=== PATIENT | female | born 1980 | race Caucasian/White ===

== ENCOUNTER 2016-06-15 15:03 | Emergency (ER) | payer MEDICAID ==
[~2016-06-15] VITALS: Ht 172.7 cm; Wt 116.0 kg
[~2016-06-15 15:03] MED LIST: CIPR-9 PO
[2016-06-15 15:06] VITALS: BP 158/110; PULSE 99; RESP 17; TEMP 98.1; O2SAT 97
[2016-06-15] MEDS ORDERED: PENI500T PO (15:36)
[2016-06-15] MEDS ORDERED: DICL50TA3 PO (15:36)
[2016-06-15] MEDS ORDERED: PERI0.126 SWISH-SPIT (15:36)
--- NOTE | 2016-06-15 15:45 | PD ---
HPI Chief Complaint: Oral / Dental Pain or Problem Time Seen by Provider: 15:38 Travel History International Travel<30 days: No Contact w/Intl Traveler<30days: No Traveled to known affect area: No History of Present Illness HPI Patient's 35-year-old female with chronic dental issues presenting with chief complaint of "I think I have another dental infection ". She has a tooth on the bottom right that has been effective multiple times has multiple parts broken off. No acute injury or breakage but has had acute worsening of the pain over 2 days. NSAIDs helped only minimally. Clove oil does seem to help. She reports some swelling and redness physician S and plans enlarged on the side of her neck on the right side. She denies induration or sublingual masses. She denies sore throat and difficulty swallowing or breathing. She has a left upper tooth problem where she has some fistula formation chronically acute worsening. She denies current . PFSH Past Medical History Cancer: Yes (CERVICAL) Diminished Hearing: No Respiratory: Yes (CHRONIC BRONCHITIS) Immunizations Current: Yes ?: Not LMP: 05/18/2016 Ectopic : Yes (RUPTURE WITH OPEN REPAIR) Past Surgical History Gynecologic Surgery: Yes (LEEP ) Other Surgery: Yes (CAROTID LACERATION REPAIR) Social History Alcohol Use: No Tobacco Use: No Substance Use: No Allergies-Medications (Allergen,Severity, Reaction): Coded Allergies: Iodine (Verified Allergy, Severe, 06/15/16) Latex (Verified Allergy, Severe, 06/15/16) Reported Meds & Prescriptions Reported Meds & Active Scripts Active Peridex Liq (Chlorhexidine Gluconate (Mouth) Liq) 0.12% Soln 15 Ml SWISH-SPIT BID Diclofenac Sodium DR (Diclofenac Sodium) 50 Mg Tabdr 50 Mg PO BID Penicillin V Potassium 500 Mg Tab 500 Mg PO Q6H 10 Days Review of Systems General / Constitutional: No: Fever, Chills HENT: Positive: Dental Difficulties, No: Headaches, Sore Throat, Neck Pain, Masses, Gingival Bleeding Cardiovascular: No: Chest Pain or Discomfort Respiratory: No: Shortness of Breath, Stridor Hematologic/Lymphatic: Positive: Lymph Node Enlargement Physical Exam Narrative GENERAL: Well-developed and well-nourished adult female in no acute distress. SKIN: Warm and dry. Good turgor without tenting. HEAD: Normocephalic and atraumatic. EYES: PERRL bilaterally, 5mm. EOMI bilaterally. No injection or icterus present. No proptosis. Lids without edema or erythema. ENT: Overall poor oral dentition. Tooth #29 has multiple caries on the lingual side and approximately two thirds of the tooth is absent. Tooth is tender to percussion but not loose. There is some erythema and tenderness of the gingiva at this tooth on the buccal side but not on the lingual side. No induration or fluctuance or drainage or bleeding. Around tooth #11 there is a small area superior to the tooth on the gingiva looks like a fistula opening. No drainage. No buccal or sublingual masses. Buccal mucosa pink and moist. Oropharynx free of erythema, tonsillar hypertrophy, masses, swelling, asymmetry and exudates. Uvula midline and airway patent. NECK: Supple, no meningeal sign. Trachea midline, no JVD. No cervical or facial lymphadenopathy however does have some tenderness to the right posterior cervical lymphadenopathy chain with palpation. No induration or masses in the cervical/submandibular or anterior neck. CARDIOVASCULAR: Regular rate and rhythm without murmurs, rubs, clicks or gallops. Radial pulses 2+ bilaterally. RESPIRATORY: Clear to auscultation bilaterally with symmetrical rise and fall, no distress or use of accessory muscles. NEUROLOGIC: CN II-XII grossly intact. Awake and alert. Motor grossly within normal limits. Normal speech. PSYCHIATRIC: Appropriate mood and affect; insight and judgment normal. Data Data Last Documented VS Vital Signs Date Time Temp Pulse Resp B/P Pulse Ox O2 Delivery O2 Flow Rate FiO2 06/15/16 15:06 98.1 99 17 158/110 97 MDM Medical Decision Making Medical Screen Exam Complete: Yes Emergency Medical Condition: Yes Differential Diagnosis Caries versus Periapical abscess versus cellulitis versus Tooth Fracture vs less likely Ludwigs Angina Narrative Course Patient is a 34-year-old female with history and physical suggestive of early periapical abscess. She'll be given prescription for diclofenac, Peridex, and pen VK. Recommend follow-up with dentist tomorrow.blood pressure is elevated she denies a history of hypertension has no cardiopulmonary symptoms. Recommend she follow up with PCP to have blood pressure evaluated. See discharge paperwork for further instructions. The plan was discussed with the patient who acknowledged their understanding and agreement. Reinforced the follow-up with primary care is critically important. Patient instructed on emergent conditions that should prompt return to ED. Diagnosis Primary Impression: Periapical abscess Additional Impression: Elevated blood pressure reading Patient Instructions: Dental Abscess (ED), General Instructions Additional Instructions: Take medication as directed Use salt water gargles, Orajel, or other OTC products for topical pain relief Apply ice packs hourly as needed to help with swelling and pain Recommend following up with PCP this week to be evaluated for elevated blood pressure/hypertension Schedule with dentist MASSIEL for definitive treatment Return to the ED for any acute worsening of symptoms Med/Other Pt SpecificInfo: Prescription(s) given Scripts Chlorhexidine Gluconate (Mouth) Liq (Peridex Liq)0.12% Soln15 Ml SWISH-SPIT BID #473 ML Prov:Raciel Pelaez MD 06/15/[address] 50 Mg Tabdr50 Mg PO BID #14 TAB Prov:Raciel Pelaez MD 06/15/16 Penicillin V Potassium 500 Mg Tmp440 Mg PO Q6H 10 Days Prov:Raciel Pelaez MD 06/15/16 Disposition: 01 DISCHARGE HOME Condition: Stable Claudio Wade III Jun 15, 2016 15:45
== END 2016-06-15 15:57 | disposition home or self-care (01) ==
LOC: PHED 15:03 → PHEFT 15:57
DX: K04.7 Periapical abscess without sinus (principal); R03.0 Elevated blood-pressure reading, without diagnosis of hypertension
CPT/HCPCS: 99282

== ENCOUNTER 2016-08-28 16:27 | Emergency (ER) | payer MEDICAID ==
[~2016-08-28] VITALS: Ht 172.7 cm; Wt 114.0 kg
[~2016-08-28 16:27] MED LIST changes: -CIPR-9 PO; +DICL50TA3 PO; +PENI500T PO; +PERI0.126 SWISH-SPIT
[2016-08-28 16:42] VITALS: BP 144/92; PULSE 88; RESP 16; TEMP 98.9; O2SAT 100
[2016-08-28] MEDS ORDERED: SODIUM CHLOR 0.9% 1000 ML INJ 1,000 ML IV ONE (16:55)
[2016-08-28] MEDS ORDERED: SODIUM CHLORIDE 0.9% FLUSH 10 ML FLUSH IVF PRN (17:00)
--- NOTE | 2016-08-28 17:25 | PD ---
HPI Chief Complaint: Related Problem Time Seen by Provider: 16:58 Travel History International Travel<30 days: No Contact w/Intl Traveler<30days: No Traveled to known affect area: No History of Present Illness HPI Patient is a 35-year-old female who is [id number], currently 6 weeks , presents to emergency room for evaluation of lower abdominal cramping and scant vaginal bleeding since last night. Patient reports that symptoms began last night, reports that she has had 3 miscarriages in the past and reports concern as she may be miscarrying. Reports that in the past, she has had 3 miscarriages and carried to around 8-9 weeks, reports that she had similar symptoms when compared to her past miscarriages. Denies any vaginal discharge. Reports that since she is high risk, she did see her PCP last week and had an HCG quant of 4,222 as well as a pelvic ultrasound which showed a IUP in her uterus. Patient requesting pelvic ultrasound as well as hCG Quant. PFSH Past Medical History Cancer: Yes (CERVICAL) Diminished Hearing: No Respiratory: Yes (CHRONIC BRONCHITIS) Immunizations Current: Yes Tetanus Vaccination: < 5 Years Influenza Vaccination: No ?: LMP: 07/13/16 Ectopic : Yes (RUPTURE WITH OPEN REPAIR) Past Surgical History Gynecologic Surgery: Yes (LEEP ) Other Surgery: Yes (CAROTID LACERATION REPAIR) Social History Alcohol Use: No Tobacco Use: No Substance Use: No Allergies-Medications (Allergen,Severity, Reaction): Coded Allergies: Iodine (Verified Allergy, Severe, Anaphylaxis, 08/28/16) Latex (Verified Allergy, Severe, Rash, 08/28/16) Shellfish (Verified Allergy, Severe, Anaphylaxis, 08/28/16) Reported Meds & Prescriptions Reported Meds & Active Scripts Active Review of Systems General / Constitutional: No: Fever Eyes: No: Visual changes HENT: No: Headaches Cardiovascular: No: Chest Pain or Discomfort Respiratory: No: Shortness of Breath Gastrointestinal: Positive: Abdominal Pain, No: Nausea, Vomiting Genitourinary: Positive: Vaginal Bleeding, No: Dysuria Musculoskeletal: No: Pain Skin: No Rash Neurologic: No: Weakness Psychiatric: No: Depression Endocrine: No: Polydipsia Hematologic/Lymphatic: No: Easy Bruising Physical Exam Narrative GENERAL: No acute distress, nontoxic SKIN: Warm and dry. HEAD: Atraumatic. Normocephalic. EYES: Pupils equal and round. No injection or drainage. ENT: No nasal bleeding or discharge. Mucous membranes pink and moist. NECK: Trachea midline. No JVD. CARDIOVASCULAR: Regular rate and rhythm. No murmur appreciated. RESPIRATORY: No accessory muscle use. Clear to auscultation. Breath sounds equal bilaterally. GASTROINTESTINAL: Abdomen soft, non-tender, nondistended. Mild lower abdominal tenderness MUSCULOSKELETAL: No obvious deformities. No clubbing. No cyanosis. No edema. NEUROLOGICAL: Awake and alert. Normal speech. PSYCHIATRIC: Appropriate mood and affect; insight and judgment normal. Data Data Last Documented VS Vital Signs Date Time Temp Pulse Resp B/P Pulse Ox O2 Delivery O2 Flow Rate FiO2 08/28/16 19:00 88 16 144/73 99 Room Air 08/28/16 16:42 98.9 Orders Beta Hcg (Quant/Titer) (08/28/16 16:55) Complete Blood Count With Diff (08/28/16 16:55) Comprehensive Metabolic Panel (08/28/16 16:55) Complete Rh (08/28/16 16:55) Type And Screen (08/28/16 16:55) Urinalysis - C+S If Indicated (08/28/16 16:55) Iv Access Insert/Monitor (08/28/16 16:55) Sodium Chloride 0.9% Flush (Ns Flush) (08/28/16 17:00) Sodium Chlor 0.9% 1000 Ml Inj (Ns 1000 M (08/28/16 16:55) Rhogam Only (08/28/16 16:55) Ed Urine Pregnancytest Poc (08/28/16 16:55) Us Pelvis (Ques Pr/Ect)W Trans (08/28/16 ) Labs Laboratory Tests Test 08/28/16 17:20 White Blood Count 8.2 TH/MM3 Red Blood Count 4.67 MIL/MM3 Hemoglobin 14.7 GM/DL Hematocrit 43.9 % Mean Corpuscular Volume 93.9 FL Mean Corpuscular Hemoglobin 31.5 PG Mean Corpuscular Hemoglobin 33.6 % Concent Red Cell Distribution Width 12.1 % Platelet Count 237 TH/MM3 Mean Platelet Volume 9.1 FL Neutrophils (%) (Auto) 56.8 % Lymphocytes (%) (Auto) 34.8 % Monocytes (%) (Auto) 6.9 % Eosinophils (%) (Auto) 0.5 % Basophils (%) (Auto) 1.0 % Neutrophils # (Auto) 4.7 TH/MM3 Lymphocytes # (Auto) 2.8 TH/MM3 Monocytes # (Auto) 0.6 TH/MM3 Eosinophils # (Auto) 0.0 TH/MM3 Basophils # (Auto) 0.1 TH/MM3 CBC Comment DIFF FINAL Differential Comment Urine Color YELLOW Urine Turbidity CLEAR Urine pH 6.5 Urine Specific [place] 1.019 Urine Protein NEG mg/dL Urine Glucose (UA) NEG mg/dL Urine Ketones NEG mg/dL Urine Occult Blood TRACE Urine Nitrite NEG Urine Bilirubin NEG Urine Leukocyte Esterase NEG Urine RBC 0-3 /hpf Urine WBC 0-2 /hpf Urine Squamous Epithelial > 8 /hpf Cells Urine Bacteria RARE /hpf Microscopic Urinalysis Comment CULT NOT INDICATED Sodium Level 140 MEQ/L Potassium Level 3.5 MEQ/L Chloride Level 106 MEQ/L Carbon Dioxide Level 26.6 MEQ/L Anion Gap 7 MEQ/L Blood Urea Nitrogen 8 MG/DL Creatinine 0.59 MG/DL Estimat Glomerular Filtration 116 ML/MIN Rate Random Glucose 97 MG/DL Calcium Level 9.0 MG/DL Total Bilirubin 0.3 MG/DL Aspartate Amino Transf 24 U/L (AST/SGOT) Alanine Aminotransferase 35 U/L (ALT/SGPT) Alkaline Phosphatase 51 U/L Total Protein 7.4 GM/DL Albumin 3.6 GM/DL Human Chorionic Gonadotropin, 08616 MIU/ML Quant Blood Type A NEGATIVE Rho(D) Type NEGATIVE Antibody Screen Blood Bank Comment MDM Medical Decision Making Medical Screen Exam Complete: Yes Emergency Medical Condition: Yes Interpretation(s) Vital Signs Date Time Temp Pulse Resp B/P Pulse Ox O2 Delivery O2 Flow Rate FiO2 08/28/16 16:42 98.9 88 16 144/92 100 Differential Diagnosis Spontaneous miscarriage, irregular vaginal bleeding with early , threatened miscarriage, anemia Narrative Course 35-year-old female who presents to emergency room with complaints of early vaginal bleeding and cramping, currently 6 weeks and 4 days . Patient reports history of miscarriages in the past, reports that she has had 3 miscarriages and the longest that she carried with these pregnancies were around 9 weeks. Patient does have an hCG Quant from last week, which was 4333 Plan to obtain lab work including hCG Quant as well as a pelvic ultrasound.] CBC & BMP Diagram 08/28/16 17:20 Vital Signs Date Time Temp Pulse Resp B/P Pulse Ox O2 Delivery O2 Flow Rate FiO2 08/28/16 19:00 88 16 144/73 99 Room Air 08/28/16 16:42 98.9 88 16 144/92 100 HCG quant has increased from last week to 26,756. A copy of her lab work was given to her as she will need to have her HCG quant trended. Last Impressions Pelvis Ultrasound 08/28/16 0000 Signed Impressions: Service Date/Time: August 19:22 - CONCLUSION: 1. Viable 5 week 5 day intrauterine with heart rate 117 beats per minute. 2. Small hemorrhage in the endometrial canal. 3. 2 cm left ovarian corpus luteum cyst. Javier Hammonds MD Did review all labs and all studies as well as ultrasound report with patient. A copy of patient's ultrasound report was given to her. Discussed need for pelvic rest until she is seen and cleared by her BANKING OFFICER. Signs and symptoms of when to return to the emergency room was reviewed patient in detail. Diagnosis Primary Impression: Threatened Additional Impression: probable small hemorrhage in endometrial canal Patient Instructions: General Instructions Additional Instructions: Please provide patient with a copy of her lab work and ultrasound report at discharge Please follow-up with your BANKING OFFICER as soon as possible Pelvic rest until you're seen and cleared by BANKING OFFICER Your hCG Quant today was 26,756 Please bring your lab work as well as your pelvic ultrasound report to doctor's office for follow-up Return to the emergency room if symptoms worsen or progress Return to emergency room as needed Scripts No Active Prescriptions or Reported Meds Janet Schwarz DO Aug 28, 2016 17:25
[2016-08-28 17:47] LABS: AUTOMATED NEUTROPHIL # 4.7 TH/MM3 (1.8-7.7); BASOPHIL # 0.1 TH/MM3 (0-0.2); EOSINOPHIL % 0.5 % (0.0-4.0); HEMATOCRIT 43.9 % (35.0-46.0); HEMO FLAGS DIFF FINAL; LYMPH % 34.8 % (9.0-44.0); LYMPHOCYTE # 2.8 TH/MM3 (1.0-4.8); MEAN CELL VOLUME 93.9 FL (80.0-100.0); MEAN CORPUSCULAR HEMOGLOBIN 31.5 PG (27.0-34.0); MEAN CORPUSCULAR HGB CONC 33.6 % (32.0-36.0); MONO % 6.9 % (0.0-8.0); NEUT % 56.8 % (16.0-70.0); PLATELET COUNT 237 TH/MM3 (150-450); RED BLOOD COUNT 4.67 MIL/MM3 (4.00-5.30); RED CELL DISTRIBUTION WIDTH 12.1 % (11.6-17.2); WHITE BLOOD COUNT 8.2 TH/MM3 (4.0-11.0)
[2016-08-28 17:51] LABS: BLOOD, URINE TRACE (NEG); GLUCOSE,URINE NEG (NEG); KETONE, URINE NEG (NEG); NITRITE,URINE NEG (NEG); PH, URINE 6.5 (5.0-8.5)
[2016-08-28 17:55] LABS: CHLORIDE 106 MEQ/L (98-107); POTASSIUM 3.5 MEQ/L (3.5-5.1); SODIUM (NA) 140 MEQ/L (136-145)
[2016-08-28 17:58] LABS: RBC, URINE 0-3 /hpf (0-3); URINE COLOR YELLOW (YELLW/STRAW); WBC, URINE 0-2 /hpf (0-5)
[2016-08-28 17:59] LABS: ANION GAP 7 MEQ/L (5-15); BACTERIA, URINE RARE /hpf; BICARBONATE 26.6 MEQ/L (21.0-32.0); BLOOD UREA NITROGEN 8 MG/DL (7-18); COMMENT (UR) CULT NOT INDICATED; CULTURE IF INDICATED CULT NOT INDICATED; SQUAMOUS EPITHELIAL CELL URINE > 8 /hpf (0-5)
[2016-08-28 18:02] LABS: ALT (GPT) 35 U/L (10-53); AST (GOT) 24 U/L (15-37); GLOMERULAR FILTRATION RATE 116 ML/MIN (>89)
[2016-08-28 18:03] LABS: TOTAL BILIRUBIN ADULT 0.3 MG/DL (0.2-1.0)
[2016-08-28 18:05] LABS: ALKALINE PHOSPHATASE 51 U/L (45-117)
[2016-08-28 18:20] LABS: BETA HCG QUANT 26756 MIU/ML (0-5)
[2016-08-28 19:00] VITALS: BP 144/73; PULSE 88; RESP 16; O2SAT 99
--- NOTE | 2016-08-28 20:17 | RADHPO ---
EXAM DATE/TIME: 08/28/2016 19:22 [facility] COMPARISON: No previous studies available for comparison. INDICATIONS : Pelvic cramping and spotting. LAB(S): Beta-hC,756 MEDICAL HISTORY : . Carcinoma, cervical. Chronic bronchitis. SURGICAL HISTORY : LEEP. Ectopic rupture with open repair. Carotid laceration repair. ENCOUNTER: Initial ACUITY: 2 days PAIN SCORE: 4/10 LOCATION: Bilateral pelvis MEASUREMENTS: UTERUS: 9.5 x 6.5 x 5.5 cm ENDOMETRIAL STRIPE: 17 mm RIGHT OVARY: 2.3 x 2.9 x 1.4 cm LEFT OVARY: 3.4 x 2.9 x 2.7 cm FREE FLUID: No CROWN RUMP LENGTH: 0.2 cm = 5 WKS 5 DAYS FHR: 117 BPM FINDINGS: Ultrasound confirms a viable intrauterine of 5 weeks 5 days gestational age by gestational sac dimensions and crown-rump length. A heart rate is 117 beats per minute. 6 mm nabothian cyst . Probable small hemorrhage in the endometrial canal measuring about 2.1 x 0.4 x 0.8 cm. Right ovary unremarkable. 2 cm left ovarian cyst characteristic of a corpus luteum cyst. CONCLUSION: 1. Viable 5 week 5 day intrauterine with heart rate 117 beats per minute. 2. Small hemorrhage in the endometrial canal. 3. 2 cm left ovarian corpus luteum cyst. Javier Hammonds MD on August 28, 2016 at 20:11 Board Certified Radiologist. This report was verified electronically.
[2016-08-28 22:00] VITALS: BP 136/75
== END 2016-08-28 22:00 | disposition home or self-care (01) ==
LOC: PHED 16:27
DX: O20.0 Threatened abortion (principal); Z85.41 Personal history of malignant neoplasm of cervix uteri; Z3A.01 Less than 8 weeks gestation of pregnancy
CPT/HCPCS: 76700; 76817; 80053; 81001; 84702; 84703; 85025; 86850; 86900; 86901; 90384; J7030; 96360; 96361; 96372; J2790

== ENCOUNTER 2016-11-14 11:28 | Emergency (ER) | payer MEDICAID ==
[~2016-11-14] VITALS: Ht 170.2 cm; Wt 115.0 kg
[2016-11-14 11:30] VITALS: BP 175/84; PULSE 100; RESP 20; TEMP 97.4; O2SAT 98
--- NOTE | 2016-11-14 11:36 | PD ---
Physical Exam Date Seen by Provider: Nov 14, 2016 Time Seen by Provider: 11:33 Data Data Last Documented VS Vital Signs Date Time Temp Pulse Resp B/P Pulse Ox O2 Delivery O2 Flow Rate FiO2 11/14/16 11:30 97.4 100 20 175/84 98 Room Air [facility] Supervised Visit with STEPHEN: No Narrative Course 36 YO F with complaint of cough, body aches x 1 week. -- fever. 7 weeks 5 days gestation by US. Vitals reviewed. Awaiting bed placement. Scripts No Active Prescriptions or Reported Meds Tanja Lemos Nov 14, 2016 11:36
--- NOTE | 2016-11-14 13:34 | PD ---
HPI Chief Complaint: Cold / Flu Symptoms Time Seen by Provider: 13:04 Travel History International Travel<30 days: No Contact w/Intl Traveler<30days: No Traveled to known affect area: No History of Present Illness HPI This patient complains of runny nose congestion cough and general achiness. She is 17 weeks . No pelvic pain or vaginal bleeding. She does not have any documented fever. Symptoms severity is mild to moderate PFSH Past Medical History Cancer: Yes (CERVICAL) Diminished Hearing: No Respiratory: Yes (CHRONIC BRONCHITIS) Immunizations Current: Yes Ectopic : Yes (RUPTURE WITH OPEN REPAIR) Past Surgical History Gynecologic Surgery: Yes (LEEP ) Other Surgery: Yes (CAROTID LACERATION REPAIR) Social History Alcohol Use: No Tobacco Use: No Substance Use: No Allergies-Medications (Allergen,Severity, Reaction): Coded Allergies: Iodine (Verified Allergy, Severe, Anaphylaxis, 08/28/16) Latex (Verified Allergy, Severe, Rash, 08/28/16) Shellfish (Verified Allergy, Severe, Anaphylaxis, 08/28/16) Reported Meds & Prescriptions Reported Meds & Active Scripts Active No Active Prescriptions or Reported Medications Review of Systems HENT: No: Headaches Cardiovascular: No: Chest Pain or Discomfort Respiratory: Positive: Cough Gastrointestinal: No: Vomiting Physical Exam Narrative RESPIRATORY: Respiratory effort unlabored, no retractions or use of accessory muscles. Breath sounds are clear and symmetric. GASTROINTESTINAL: Abdomen soft, non-tender, nondistended. Positive bowel sounds. No hepato-splenomegaly, or palpable masses. No guarding. SKIN: Focused skin assessment reveals no rash or ulcers. Skin is warm and dry. Palpation shows no induration or nodules. Data Data Last Documented VS Vital Signs Date Time Temp Pulse Resp B/P Pulse Ox O2 Delivery O2 Flow Rate FiO2 11/14/16 13:20 18 99 Room Air 11/14/16 11:30 97.4 100 175/84 MDM Medical Decision Making Medical Screen Exam Complete: Yes Emergency Medical Condition: Yes Medical Record Reviewed: Yes Differential Diagnosis Flu syndrome, URI, bronchitis Narrative Course I have reviewed the patient's electronic medical record. Patient's presentation most consistent with acute viral URI/flu syndrome. Supportive care discussed. No indication for antibiotics. Diagnosis Primary Impression: Flu syndrome Additional Impression: Qualified Code: Z3A.17 - 17 weeks gestation of Additional Instructions: The patient was advised to follow up with their physician and return if they worsen. Med/Other Pt SpecificInfo: Other Scripts No Active Prescriptions or Reported Meds Disposition: 01 DISCHARGE HOME Condition: Stable Garrick Matute MD Nov 14, 2016 13:34
== END 2016-11-14 14:36 | disposition home or self-care (01) ==
LOC: NEPD 11:28
DX: O98.512 Other viral diseases complicating pregnancy, second trimester (principal); J11.1 Influenza due to unidentified influenza virus with other respiratory manifestations; O09.512 Supervision of elderly primigravida, second trimester; Z3A.17 17 weeks gestation of pregnancy
CPT/HCPCS: 99282

== ENCOUNTER 2017-01-30 23:13 | Emergency (ER) | payer MEDICAID ==
[~2017-01-30] VITALS: Ht 170.2 cm; Wt 115.0 kg
[2017-01-30 23:17] VITALS: BP 181/93; PULSE 87; RESP 15; TEMP 98.4; O2SAT 97
[2017-01-30] MEDS ORDERED: prenatal vitamin PO (23:29)
--- NOTE | 2017-01-31 00:40 | PD ---
HPI Chief Complaint: Laceration/Skin Injury Time Seen by Provider: 00:35 Travel History International Travel<30 days: No Contact w/Intl Traveler<30days: No Traveled to known affect area: No History of Present Illness HPI 36-year-old white female presents to emergency department with a laceration to her right middle finger. She states that she had cut her finger on a wire on the couch when she was reaching down inside of it to get a piece of her phone belt polisher. She has not had a tetanus shot over 5 years. She denies any numbness , tingling or weakness. She is . [facility] Past Medical History Cancer: Yes (CERVICAL) Diminished Hearing: No Respiratory: Yes (CHRONIC BRONCHITIS) Immunizations Current: Yes Tetanus Vaccination: > 5 Years Influenza Vaccination: No ?: LMP: 07/13/2016 : 8 Para: 3 Miscarriage: 4 Ectopic : Yes (RUPTURE WITH OPEN REPAIR) Past Surgical History Gynecologic Surgery: Yes (LEEP ) Other Surgery: Yes (CAROTID LACERATION REPAIR) Social History Alcohol Use: No Tobacco Use: No Substance Use: No Allergies-Medications (Allergen,Severity, Reaction): Coded Allergies: iodine (Unverified Allergy, Severe, Anaphylaxis, 01/20/17) latex (Unverified Allergy, Severe, Rash, 01/20/17) potassium iodide (Unverified Allergy, Severe, Anaphylaxis, 01/20/17) povidone-iodine (Unverified Allergy, Severe, Anaphylaxis, 01/20/17) shellfish derived (Unverified Allergy, Severe, Anaphylaxis, 01/20/17) sodium iodide (Unverified Allergy, Severe, Anaphylaxis, 01/20/17) sodium iodide (Unverified Allergy, Severe, Anaphylaxis, 01/20/17) Reported Meds & Prescriptions Reported Meds & Active Scripts Active Reported [ vitamin] 1 Tab PO DAILY Review of Systems Except as stated in HPI: all other systems reviewed are Neg Physical Exam Narrative GENERAL: This is a well-nourished, well-developed patient, in no apparent distress. SKIN: No rashes, ecchymoses or lesions. Warm and dry. Patient has a 2 cm superficial laceration to the volar pad of the right distal middle finger. There is no deep injury. She is able to extend and flex her finger freely. Good sensation. No foreign body. HEAD: Atraumatic. Normocephalic. EYES: PERRL, EOMI, no discharge or injection. No scleral icterus. EARS: Clear NOSE: Nasal turbinates appear normal. THROAT: Mucosa pink and moist. Airway patent. NECK: Trachea midline. supple, moves head freely. LUNGS: Clear to auscultation. CV: Regular in rhythm. ABDOMEN: Soft nontender. Gravid uterus. EXT: No clubbing cyanosis or edema. Data Data Last Documented VS Vital Signs Date Time Temp Pulse Resp B/P (MAP) Pulse Ox O2 Delivery O2 Flow Rate FiO2 01/30/17 23:17 98.4 87 15 181/93 (122) 97 Room Air Orders Orders Tetanus/Diphtheria Tox Adult (Tetanus/Di (01/31/17 00:45) MDM Medical Decision Making Medical Screen Exam Complete: Yes Emergency Medical Condition: Yes Medical Record Reviewed: Yes Differential Diagnosis MDM: High Differential diagnoses: Fracture, sprain, strain, dislocation, contusion, neurovascular injury Narrative Course Patient's tetanus status updated. Her wound is evaluated and the patient has declined sutures at this time. I believe that this wound will heal fine without sutures as well. The wound is cleansed by the nursing staff and a large bulky dressings applied. This is right middle finger laceration-nonsutured Diagnosis Primary Impression: right middle finger laceration-nonsutured Patient Instructions: General Instructions Additional Instructions: Rest. Elevation. Keep clean and dry. Daily wound care with soap, water, Neosporin. Tylenol for pain. Follow-up with your doctor in 1 week. Return to the ER for emergencies. Med/Other Pt SpecificInfo: Wound Care Disposition: DISCHARGE HOME Condition: Stable Javier Bain Jan 31, 2017 00:40
[2017-01-31] MEDS ORDERED: TETANUS/DIPHTHERIA TOXOID ADULT 0.5 ML VIAL IM ONE (00:45)
== END 2017-01-31 00:52 | disposition home or self-care (01) ==
LOC: NEPD 23:13
DX: S61.212A Laceration without foreign body of right middle finger without damage to nail, initial encounter (principal); W45.8XXA Other foreign body or object entering through skin, initial encounter; Z34.90 Encounter for supervision of normal pregnancy, unspecified, unspecified trimester; Z23 Encounter for immunization
CPT/HCPCS: 90471; 90714

== ENCOUNTER 2017-07-03 09:34 | Emergency (ER) | payer MEDICAID ==
[~2017-07-03] VITALS: Ht 172.7 cm; Wt 113.6 kg
[~2017-07-03 09:34] MED LIST changes: -DICL50TA3 PO; -PENI500T PO; -PERI0.126 SWISH-SPIT; +prenatal vitamin PO
[2017-07-03 09:36] VITALS: BP 172/89; PULSE 67; RESP 14; TEMP 97.5; O2SAT 99
[2017-07-03 10:59] LABS: BILIRUBIN, URINE NEG (NEG); BLOOD, URINE NEG (NEG); GLUCOSE,URINE NEG (NEG); KETONE, URINE NEG (NEG); MUCUS URINE FEW /lpf (OCC); NITRITE,URINE NEG (NEG); PH, URINE 6.5 (5.0-8.5); SQUAMOUS EPITHELIAL CELL URINE 2 /hpf (0-5); URINE COLOR YELLOW (YELLW/STRAW); URINE LEUKOCYTE ESTERASE NEG (NEG)
[2017-07-03 11:09] LABS: AUTOMATED NEUTROPHIL # 3.6 TH/MM3 (1.8-7.7); BASOPHIL # 0.1 TH/MM3 (0-0.2); BASOPHIL % 0.8 % (0.0-2.0); EOSINOPHIL # 0.1 TH/MM3 (0-0.4); EOSINOPHIL % 1.1 % (0.0-4.0); HEMATOCRIT 39.6 % (35.0-46.0); LYMPH % 39.5 % (9.0-44.0); LYMPHOCYTE # 2.8 TH/MM3 (1.0-4.8); MEAN CELL VOLUME 92.2 FL (80.0-100.0); MEAN CORPUSCULAR HEMOGLOBIN 32.7 PG (27.0-34.0); MEAN CORPUSCULAR HGB CONC 35.4 % (32.0-36.0); MONO % 7.9 % (0.0-8.0); MONOCYTE # 0.6 TH/MM3 (0-0.9); NEUT % 50.7 % (16.0-70.0); PLATELET COUNT 216 TH/MM3 (150-450); RED BLOOD COUNT 4.29 MIL/MM3 (4.00-5.30); RED CELL DISTRIBUTION WIDTH 13.3 % (11.6-17.2); WHITE BLOOD COUNT 7.1 TH/MM3 (4.0-11.0)
[2017-07-03] MEDS ORDERED: IBUPROFEN 800 MG TAB PO ONE (11:45)
[2017-07-03] MEDS ORDERED: IBUP1TAB7 PO (11:59)
--- NOTE | 2017-07-03 12:28 | PD ---
HPI Chief Complaint: Cardiac Complaint Time Seen by Provider: 11:26 Travel History International Travel<30 days: No Contact w/Intl Traveler<30days: No Traveled to known affect area: No History of Present Illness HPI 36-year-old female presents to the emergency department with complaint of bilateral lower back pain and intermittent pain to her front "kidneys," heart palpitations, nausea without vomiting, and feeling fatigued for the past 2 days. She has history of heart palpitations for the past 9-12 months and there is no difference in these palpitations, but she says it been occurring a little bit more often than normal for the past 2 days. She denies lightheadedness, dizziness, syncope, near syncope. Denies chest pain, shortness of breath. Says she's been told that she has urinary issues and is supposed to follow up outpatient, but doesn't know what's wrong with her kidneys. Reports bilateral lower extremity edema that has improved since she gave 3 months ago. Says her has flulike symptoms. The patient denies nasal congestion, cough, sore throat, ear pain. Reports body aches. Denies abdominal pain, fever , diarrhea. Has taken ibuprofen for symptom management. Symptoms are mild to moderate in severity. No known aggravating or relieving factors. Does not know the name of her PCP. Does not see a behavioral health clinician. Allergies to latex, shellfish, iodine. Denies significant past medical history. Has no other medical complaints. No other modifying factors or associated signs and symptoms. PFSH Past Medical History Cancer: Yes (CERVICAL) Diminished Hearing: No Respiratory: Yes (CHRONIC BRONCHITIS) Immunizations Current: Yes Tetanus Vaccination: < 5 Years Influenza Vaccination: No ?: Not : 8 Para: 3 Miscarriage: 4 Ectopic : Yes (RUPTURE WITH OPEN REPAIR) Past Surgical History Gynecologic Surgery: Yes (LEEP ) Other Surgery: Yes (CAROTID LACERATION REPAIR) Social History Alcohol Use: No Tobacco Use: No Substance Use: No Allergies-Medications (Allergen,Severity, Reaction): Coded Allergies: iodine (Unverified Allergy, Severe, Anaphylaxis, 07/03/17) latex (Unverified Allergy, Severe, Rash, 07/03/17) potassium iodide (Unverified Allergy, Severe, Anaphylaxis, 07/03/17) povidone-iodine (Unverified Allergy, Severe, Anaphylaxis, 07/03/17) shellfish derived (Unverified Allergy, Severe, Anaphylaxis, 07/03/17) sodium iodide (Unverified Allergy, Severe, Anaphylaxis, 07/03/17) sodium iodide (Unverified Allergy, Severe, Anaphylaxis, 07/03/17) Reported Meds & Prescriptions Reported Meds & Active Scripts Active Reported Ibuprofen 800 Mg Tab 800 Mg PO Q8H PRN [ vitamin] 1 Tab PO DAILY Review of Systems Except as stated in HPI: all other systems reviewed are Neg Physical Exam Narrative GENERAL: Well-nourished, well-developed female patient, in no acute distress; afebrile, nontoxic-appearing SKIN: Warm and dry. No rash. HEAD: Atraumatic. Normocephalic. EYES: Pupils equal and round. No scleral icterus. No injection or drainage. ENT: Mucosa pink and moist. No erythema or exudates. No uvular edema. No uvular , palatal, or tonsillar deviation. Airway patent. EARS: Bilateral pinnae and external canals appear within normal limits. Bilateral tympanic membranes without erythema, dullness or perforation. NECK: Trachea midline. No lymphadenopathy. CARDIOVASCULAR: Regular rate and rhythm. No murmur appreciated. RESPIRATORY: No accessory muscle use. Clear to auscultation. Breath sounds equal bilaterally. No retractions or tachypnea. GASTROINTESTINAL: Abdomen soft, non-tender, nondistended. Hepatic and splenic margins not palpable. Bowel sounds are active 4 quadrants. MUSCULOSKELETAL: No obvious deformities. No clubbing. No cyanosis. No edema. BACK: No CVA tenderness. NEUROLOGICAL: Awake and alert. Oriented 3. No obvious cranial nerve deficits. Motor grossly within normal limits. Normal speech. Moves all extremities. 5/5 strength to all extremities. PSYCHIATRIC: Appropriate mood and affect; insight and judgment normal. Data Data Last Documented VS Vital Signs Date Time Temp Pulse Resp B/P (MAP) Pulse Ox O2 Delivery O2 Flow Rate FiO2 07/03/17 15:43 07/03/17 11:30 Room Air 07/03/17 09:36 97.5 67 14 99 Orders Orders Electrocardiogram (07/03/17 10:13) Complete Blood Count With Diff (07/03/17 10:13) Basic Metabolic Panel (Bmp) (07/03/17 10:13) Ckmb (Isoenzyme) Profile (07/03/17 10:13) Troponin I (07/03/17 10:13) Urinalysis - C+S If Indicated (07/03/17 10:13) Chest, Single Ap (07/03/17 11:42) Ibuprofen (Motrin) (07/03/17 11:45) Influenzae A/B Antigen (07/03/17 11:42) Thyroid Stimulating Hormone (07/03/17 11:58) Ed Discharge Order (07/03/17 15:37) Labs Laboratory Tests Test 07/03/17 10:20 07/03/17 10:43 07/03/17 14:10 Urine Color YELLOW Urine Turbidity CLOUDY Urine pH 6.5 Urine Specific [place] 1.023 Urine Protein TRACE mg/dL Urine Glucose (UA) NEG mg/dL Urine Ketones NEG mg/dL Urine Occult Blood NEG Urine Nitrite NEG Urine Bilirubin NEG Urine Urobilinogen LESS THAN 2.0 MG/DL Urine Leukocyte Esterase NEG Urine RBC 1 /hpf Urine WBC LESS THAN 1 /hpf Urine Squamous Epithelial Cells 2 /hpf Urine Mucus FEW /lpf Microscopic Urinalysis Comment CULT NOT INDICATED White Blood Count 7.1 TH/MM3 Red Blood Count 4.29 MIL/MM3 Hemoglobin 14.0 GM/DL Hematocrit 39.6 % Mean Corpuscular Volume 92.2 FL Mean Corpuscular Hemoglobin 32.7 PG Mean Corpuscular Hemoglobin Concent 35.4 % Red Cell Distribution Width 13.3 % Platelet Count 216 TH/MM3 Mean Platelet Volume 8.0 FL Neutrophils (%) (Auto) 50.7 % Lymphocytes (%) (Auto) 39.5 % Monocytes (%) (Auto) 7.9 % Eosinophils (%) (Auto) 1.1 % Basophils (%) (Auto) 0.8 % Neutrophils # (Auto) 3.6 TH/MM3 Lymphocytes # (Auto) 2.8 TH/MM3 Monocytes # (Auto) 0.6 TH/MM3 Eosinophils # (Auto) 0.1 TH/MM3 Basophils # (Auto) 0.1 TH/MM3 CBC Comment DIFF FINAL Differential Comment Blood Urea Nitrogen 12 MG/DL Creatinine 0.58 MG/DL Random Glucose 94 MG/DL Calcium Level 8.8 MG/DL Sodium Level 139 MEQ/L Potassium Level 3.6 MEQ/L Chloride Level 105 MEQ/L Carbon Dioxide Level 25.4 MEQ/L Anion Gap 9 MEQ/L Estimat Glomerular Filtration Rate 118 ML/MIN Total Creatine Kinase 76 U/L Troponin I LESS THAN 0.02 NG/ML Thyroid Stimulating Hormone 3rd Gen 1.300 uIU/ML MDM Medical Decision Making Medical Screen Exam Complete: Yes Emergency Medical Condition: Yes Medical Record Reviewed: Yes Differential Diagnosis Influenza, fatigue, heart palpitations, arrhythmia, viral illness, UTI Narrative Course 36-year-old female with multiple complaints. She is afebrile and nontoxic- appearing. Has been exposed to influenza from her . She is post vaginal delivery 3 months. Planing of fatigue and heart palpitations. She had heart palpitations during but have continued. Denies chest pain or shortness of breath. CBC, BMP, troponin, EKG, chest x-ray, TSH, ibuprofen ordered. 1228: CBC unremarkable. Urinalysis without signs of infection. 1307: Discussed patient with Dr. Neville and he agrees 1533: BMP unremarkable. Troponin less than 0.02. TSH 1.3. Discussed findings with Dr. Neville and he agrees with discharge. Discussed labs and x- rays with the patient. Patient provided a copy of labs and x-ray. Instructed patient to follow up with primary care provider. Patient verbalizes understanding and agreement with treatment plan. Patient is medically cleared and stable for discharge. Discussed reasons to return to the emergency department. Patient agrees with treatment plan. The patients vital signs are stable and the patient is stable for outpatient follow-up and treatment. Patient discharged home, stable and in no acute distress. Diagnosis Primary Impression: Fatigue Qualified Codes: R53.83 - Other fatigue Additional Impression: Heart palpitations Referrals: [facility] Primary Care Physician Patient Instructions: Fatigue (ED), General Instructions, Heart Palpitations ( ED) Additional Instructions: Please provide the patient a copy of her lab reports and x-ray Ibuprofen or Tylenol instructed and as needed for pain/inflammation Follow-up with primary care provider Return to the emergency department immediately with worsening of symptoms Med/Other Pt SpecificInfo: No Change to Meds, No Meds Exist/No RX given Disposition: 01 DISCHARGE HOME Condition: Stable Betty Young Jul 03, 2017 12:28
--- NOTE | 2017-07-03 12:30 | RADRPT ---
EXAM DATE/TIME: 07/03/2017 12:05 [place] COMPARISON: No previous studies available for comparison. INDICATIONS : Heart palpitations, pain in upper abdomen and lower chest MEDICAL HISTORY : cervical ca, ectopic SURGICAL HISTORY : carotid laceration repaired, ruptured fallopian tube ENCOUNTER: Initial ACUITY: 1 day PAIN SCORE: 7/10 LOCATION: Bilateral chest FINDINGS: The lungs are unaerated without failure.. The cardiomediastinal contours are probably normal for thi s degree of inspiration. Osseous structures are intact. CONCLUSION: Probably negative. Partial expiratory chest. Andrew Bowers MD FACR on July 03, 2017 at 12:27 Board Certified Radiologist. This report was verified electronically.
[2017-07-03 14:41] LABS: BICARBONATE 25.4 MEQ/L (21.0-32.0); BLOOD UREA NITROGEN 12 MG/DL (7-18); CALCIUM 8.8 MG/DL (8.5-10.1); CHLORIDE 105 MEQ/L (98-107); CREATININE 0.58 MG/DL (0.50-1.00); GLOMERULAR FILTRATION RATE 118 ML/MIN (>89); GLUCOSE,RANDOM 94 MG/DL (74-106); SODIUM (NA) 139 MEQ/L (136-145)
[2017-07-03 14:49] LABS: TROPONIN I LESS THAN 0.02 NG/ML (0.02-0.05)
[2017-07-03 15:43] VITALS: BP 110/70
--- NOTE | 2017-07-04 13:45 | EKG ---
Date Performed: 07/03/2017 Time Performed: 10:30:48 PTAGE: 36 years EKG: Sinus rhythm NORMAL ECG NO PREVIOUS TRACING DOCTOR: Yusuf Chapman Interpretating Date/Time 07/04/2017 13:42:56
== END 2017-07-03 15:58 | disposition home or self-care (01) ==
LOC: NEPD 09:34
DX: R53.83 Other fatigue (principal); R00.2 Palpitations; M54.5 Low back pain; R11.0 Nausea; Z79.899 Other long term (current) drug therapy
CPT/HCPCS: 71045; 80048; 81001; 82550; 84443; 84484; 85025; 87804; 93005; 99285